=== PATIENT | female | born 1960 | race Caucasian/White ===

== ENCOUNTER 2019-05-03 09:40 | Outpatient (CLI) | payer BC | END 2019-05-03 09:41 | disposition home or self-care (01) | LOC: CTENTCT 09:40 | PROVIDERS: ATTEND Specialist | DX: G44.209 Tension-type headache, unspecified, not intractable (principal) | CPT/HCPCS: 70486 ==

== ENCOUNTER 2020-03-04 11:39 | Outpatient (CLI) | payer BC | END 2020-03-04 11:40 | disposition home or self-care (01) | LOC: CTENTCT 11:39 | PROVIDERS: ATTEND Otolaryngology Plastic Surgery within the Head & Neck | DX: J32.9 Chronic sinusitis, unspecified (principal) | CPT/HCPCS: 36415; 70486 ==

== ENCOUNTER 2020-03-11 09:13 | Outpatient (CLI) | payer BC ==
--- NOTE | 2020-03-11 09:57 | MMO ---
Bilateral MAMMO Bilat Screen [facility]. CLINICAL HISTORY: Patient is 60 years old and is seen for screening. The patient has the following family history of breast cancer: mother, at age 50 and maternal aunt, and leukemia. The patient has no personal history of cancer. The patient has a history of right Excisional Biopsy in 2009 - benign. VIEWS: The views performed were: bilateral craniocaudal with tomosynthesis and bilateral mediolateral oblique with tomosynthesis. FILMS COMPARED: The present examination has been compared to prior imaging studies performed at [facility] on 01/30/2011, 02/23/2012 and 02/24/2013, and at [facility] on 11/01/2009. This study has been interpreted with the assistance of computer-aided detection. MAMMOGRAM FINDINGS: There are scattered fibroglandular densities. There are no suspicious masses, suspicious calcifications, or new areas of architectural distortion. IMPRESSION: THERE IS NO MAMMOGRAPHIC EVIDENCE OF MALIGNANCY. A ROUTINE FOLLOW-UP MAMMOGRAM IN 1 YEAR IS RECOMMENDED. THE RESULTS OF THIS EXAM WERE SENT TO THE PATIENT. ACR BI-RADS Category 1 - Negative MAMMOGRAPHY NOTE: 1. A negative mammogram report should not delay a biopsy if a dominant of clinically suspicious mass is present. 2. Approximately 10% to 15% of breast cancers are not detected by mammography. 3. Adenosis and dense breasts may obscure an underlying neoplasm. Reported by: JOSEPH SERRANO MD Electonically Signed: [id number]
== END 2020-03-11 09:14 | disposition home or self-care (01) ==
LOC: BICMAMMO 09:13
PROVIDERS: ATTEND Family Medicine
DX: Z12.31 Encounter for screening mammogram for malignant neoplasm of breast (principal); Z91.89 Other specified personal risk factors, not elsewhere classified; Z80.3 Family history of malignant neoplasm of breast
CPT/HCPCS: 77063; 77067